=== PATIENT | male | born 1990 | race Caucasian/White ===

== ENCOUNTER → 2020-10-24 | Outpatient (CLI) | payer SELFPAY | LOC: M LABSMTC 13:47 | PROVIDERS: ATTEND Pediatrics | DX: Z20.822 Contact with and (suspected) exposure to COVID-19 (principal) ==

== ENCOUNTER 2021-06-11 09:57 | Emergency (ER) | payer SELFPAY ==
[~2021-06-11] VITALS: Ht 182.9 cm; Wt 83.1 kg
[2021-06-11] MEDS ORDERED: MORPHINE 4 MG/ML 1ML VIAL/SYRINGE (J2270) IV PRN (10:40)
[2021-06-11] MEDS ORDERED: ONDANSETRON 4MG/2ML VIAL IV ONE (10:40)
--- NOTE | 2021-06-11 11:09 | REP ---
INDICATION: trauma, YANIV. COMPARISON: None. TECHNIQUE: Axial noncontrast images of the lumbosacral spine from mid T12 through mid sacrum with coronal and sagittal reformations. This CT examination was performed using the following dose reduction techniques: Automated exposure control, adjustment of mA and/or kv according to the patient's size, and use of iterative reconstruction technique. FINDINGS: Alignment and lordosis maintained. Vertebral bodies are intact. Posterior elements and spinous processes are intact. There is no evidence for acute fracture/compression injury or subluxation. The spinal canal is patent. The paravertebral soft tissues are normal. IMPRESSION: Normal age-appropriate lumbosacral spine CT. No evidence for acute fracture/compression injury or subluxation. <Electronically signed by Tanner Lazo > 06/11/21 [id number]
--- NOTE | 2021-06-11 13:35 | REPVR ---
PROCEDURE INFORMATION: Exam: MR Lumbar Spine Without Contrast Exam date and time: 06/11/2021 11:52 AM Age: 30 years old Clinical indication: Numbness and weakness. TECHNIQUE: Imaging protocol: Multiplanar magnetic resonance images of the lumbar spine without intravenous contrast. COMPARISON: CT Spine, lumbar w/o contrast 06/11/2021 10:47 AM FINDINGS: Vertebrae: Unremarkable. Spinal cord: Normal signal. No cord compression. L1-L2: No significant disc disease. No significant spinal canal stenosis. No neural foraminal stenosis. L2-L3: No significant disc disease. No significant spinal canal stenosis. No neural foraminal stenosis. L3-L4: No significant disc disease. No significant spinal canal stenosis. No neural foraminal stenosis. L4-L5: No significant disc disease. No significant spinal canal stenosis. No neural foraminal stenosis. L5-S1: No significant disc disease. No significant spinal canal stenosis. No neural foraminal stenosis. Soft tissues: Unremarkable. Urinary bladder: The urinary bladder is markedly distended. IMPRESSION: 1. Unremarkable MRI of the lumbar spine. Normal appearance of the cauda equina nerve roots. No compression of the cauda equina nerve roots. 2. The urinary bladder is markedly distended. Consider Gregorio catheter placement if clinically indicated. Electronically signed by: Adam Caldera On 06/11/2021 13:35:19 PM
[2021-06-11] MEDS ORDERED: LIDOCAINE 2% 5ML JELLY UROJET TOP ONE (13:55)
[2021-06-11 14:56] VITALS: BP 132/80
== END 2021-06-11 14:57 | disposition home or self-care (01) ==
LOC: M ED 09:57
DX: S39.012A Strain of muscle, fascia and tendon of lower back, initial encounter (principal); W17.89XA Other fall from one level to another, initial encounter; Y92.89 Other specified places as the place of occurrence of the external cause; F10.129 Alcohol abuse with intoxication, unspecified; R33.9 Retention of urine, unspecified; F17.210 Nicotine dependence, cigarettes, uncomplicated
CPT/HCPCS: 72131; 72148; 96374; 96375; 99284; J2270; J2405

== ENCOUNTER 2025-03-28 01:35 | Inpatient (IN) | payer MEDICAID, SELFPAY ==
[~2025-03-28] VITALS: Ht 182.9 cm; Wt 77.3 kg
[2025-03-28] MEDS ORDERED: ACETAMINOPHEN 325 MG TAB PO PRN (05:40)
[2025-03-28] MEDS: LR 1,000 ML IV SCH (05:45)
[2025-03-28 05:53] LABS: BASO # 0.1 10^3/uL (0.0-0.2); BASO % 0.6 % (0.0-1.0); EOS # 0.4 10^3/uL (0.0-0.5); EOS % 2.5 % (0.0-3.0); LYMPH # 2.6 10^3/uL (1.5-5.0); LYMPH % 18.3 % (24.0-44.0); MONO # 0.9 10^3/uL (0.0-0.8); MONO % 6.6 % (2.0-8.0); NEUTROPHILS # 10.2 10^3/uL (1.5-8.5); NEUTROPHILS % 71.6 % (36.0-66.0); PLATELET COUNT, AUTOMATED 266 10^3/uL (150-450)
[2025-03-28 06:22] LABS: CALCIUM LEVEL 8.8 MG/DL (8.5-10.1); CARBON DIOXIDE LEVEL 24 MMOL/L (20-31); CHLORIDE LEVEL 102 MMOL/L (98-107); CREATININE FOR GFR 1.09 MG/DL (0.70-1.30); GLOMERULAR FILTRATION RATE > 90.0 (>60); MAGNESIUM LEVEL 2.0 MG/DL (1.8-2.4); POTASSIUM SERUM 4.6 MMOL/L (3.5-5.1); SODIUM LEVEL 139 MMOL/L (136-145)
[2025-03-28] MEDS ORDERED: MIDAZOLAM INJ 2 MG/2 ML VIAL As Ordered ONE (07:33)
[2025-03-28] MEDS ORDERED: LIDOCAINE 2% 100 MG/5 ML SDV (FOR ANES.) As Ordered ONE (07:34)
[2025-03-28] MEDS ORDERED: dexAMETHasone 4 MG/ML 1 ML VIAL As Ordered ONE (07:34)
[2025-03-28] MEDS ORDERED: ACETAMINOPHEN 1000MG/100ML IV BAG As Ordered ONE (07:34)
[2025-03-28] MEDS ORDERED: KETOROLAC 30 MG/ML 1 ML VIAL As Ordered ONE (07:34)
[2025-03-28] MEDS ORDERED: SUGAMMADEX SODIUM 500 MG/5 ML VIAL As Ordered ONE (07:34)
[2025-03-28] MEDS ORDERED: ONDANSETRON 4MG 2ML VIAL As Ordered ONE (07:34)
[2025-03-28] MEDS ORDERED: ROCURONIUM BROMIDE 50MG/5ML VIAL As Ordered ONE (07:34)
[2025-03-28] MEDS: THIAMINE 100 MG TAB PO SCH (07:37)
[2025-03-28 07:38] LABS: ETHYL ALCOHOL (ETHANOL) 0.228 % (0.000-0.010)
[2025-03-28 07:39] LABS: ALT/SGPT 61 U/L (7.0-40); AST/SGOT 46 U/L (<34)
[2025-03-28] MEDS ORDERED: HOME MED LIST COMPLETE! XX SCH (08:15)
[2025-03-28 08:23] LABS: INR 0.86
[2025-03-28] MEDS: FOLIC ACID 1 MG TAB PO SCH (08:50)
[2025-03-28] MEDS: PANTOPRAZOLE 40MG TAB PO SCH (08:58)
[2025-03-28] MEDS: MULTIVITAMINS/MINERALS THERAP 1 TAB PO SCH (08:58)
[2025-03-28] MEDS ORDERED: HYDROmorphone HCL 2 MG/ML 1 ML VIAL As Ordered ONE (10:29)
[2025-03-28] MEDS: TRANEXAMIC ACID 100 MG/ML 10ML VIAL As Ordered ONE (10:50)
[2025-03-28] MEDS ORDERED: ASPI81CH33 PO (13:39)
[2025-03-28] MEDS ORDERED: OXYC-517 PO (13:40)
[2025-03-28] MEDS ORDERED: COLA100C5 PO (13:42)
[2025-03-28] MEDS ORDERED: CELE1CAP4 PO (13:42)
[2025-03-28] MEDS ORDERED: ACET-907 PO (13:46)
[2025-03-28] MEDS: ROPIvacaine 0.5% 30ML VIAL PN ONE (14:20)
[2025-03-28] MEDS: dexAMETHasone 10 MG/1 ML VIAL PRES.FREE PN ONE (14:20)
[2025-03-28 14:45] VITALS: BP 140/86; TEMP 97.9; O2SAT 88
[2025-03-28 15:15] VITALS: BP 149/85; TEMP 97.3; O2SAT 91
[2025-03-28 15:45] VITALS: BP 147/87; TEMP 97.5; O2SAT 92
[2025-03-28 16:45] VITALS: BP 143/87; TEMP 96.8; O2SAT 92
[2025-03-28 16:55] VITALS: BP 143/87
== END 2025-03-28 18:09 | disposition home or self-care (01) | DRG 313 ==
LOC: M ED 01:35 → M ED INP 05:26 → M MS5PR 14:45
PROVIDERS: ADMIT Student in an Organized Health Care Education/Training Program; ATTEND Internal Medicine
PROC: 0QSJ04Z Reposition Right Fibula with Internal Fixation Device, Open Approach (ICD-10-PCS; principal; 2025-03-28 07:30)
DX: S82.854A Nondisplaced trimalleolar fracture of right lower leg, initial encounter for closed fracture (principal); F10.129 Alcohol abuse with intoxication, unspecified; Y04.0XXA Assault by unarmed brawl or fight, initial encounter; W51.XXXA Accidental striking against or bumped into by another person, initial encounter; Y92.028 Other place in mobile home as the place of occurrence of the external cause; Y93.89 Activity, other specified; Y99.9 Unspecified external cause status; F17.200 Nicotine dependence, unspecified, uncomplicated; Z79.82 Long term (current) use of aspirin; Z79.899 Other long term (current) drug therapy

== ENCOUNTER → 2025-04-07 | Outpatient (CLI) | payer MEDICAID ==
[~2025-04-07] MED LIST: ACET-907 PO; ASPI81CH33 PO; CELE1CAP4 PO; COLA100C5 PO; OXYC-517 PO
== END ==
LOC: M SOG 06:47
PROVIDERS: ATTEND Physician Assistant
DX: S82.851D Displaced trimalleolar fracture of right lower leg, subsequent encounter for closed fracture with routine healing (principal)

== ENCOUNTER → 2025-04-22 | Outpatient (CLI) | payer MEDICAID | LOC: M SOG 08:39 | PROVIDERS: ATTEND Orthopaedic Surgery | DX: S82.851D Displaced trimalleolar fracture of right lower leg, subsequent encounter for closed fracture with routine healing (principal) ==

== ENCOUNTER → 2025-06-09 | Outpatient (CLI) | payer MEDICAID, OTHER | LOC: M SOG 07:17 | PROVIDERS: ATTEND Physician Assistant | DX: S82.851D Displaced trimalleolar fracture of right lower leg, subsequent encounter for closed fracture with routine healing (principal) ==